=== PATIENT | male | born 1975 | race Two or more races ===

== ENCOUNTER 2025-07-11 21:35 | Emergency (ER) | payer BC ==
[~2025-07-11] VITALS: Ht 175.3 cm; Wt 154.6 kg
[2025-07-11 21:37] VITALS: BP 144/105; PULSE 79; RESP 16; TEMP 97.7; O2SAT 95
[2025-07-11 22:28] LABS: PLATELET COUNT (AUTO) 249 K/uL (150-450); RED BLOOD CELL COUNT(AUTO) 5.07 MIL/uL (4.50-5.90); RED CELL DISTRIBUTION WIDTH 13.5 % (11.5-14.5); WHITE BLOOD COUNT (AUTO) 12.2 K/uL (4.5-11.0)
[2025-07-11 22:35] LABS: CALCIUM, TOTAL 8.8 mg/dL (8.8-10.5); CREATININE 0.96 mg/dL (0.60-1.30); GLOMERULAR FILTR. RATE CALC > 60 mL/min (>60); GLUCOSE,RANDOM 107 mg/dL (70-110); SODIUM SERUM 140 mmol/L (136-145); UREA NITROGEN, BLOOD 14 mg/dL (7-18)
[2025-07-11 22:52] LABS: TROPONIN I-HIGH SENSITIVITY Less Than 4 ng/L (<76)
[2025-07-12 07:13] LABS: GLUCOMETER DEV NAME(LOC) ERT.7; GLUCOSE,POINT OF CARE 111 MG/DL (70-110)
== END 2025-07-12 01:11 | disposition home or self-care (01) ==
LOC: EMS 21:35
DX: R07.1 Chest pain on breathing (principal); E11.9 Type 2 diabetes mellitus without complications; Z87.891 Personal history of nicotine dependence
CPT/HCPCS: 71045; 80048; 82962; 83880; 84484; 85025; 93005; 99285; 36415-L1; 36415-TC